=== PATIENT | female | born 1980 | race African-American/Black ===

== ENCOUNTER 2024-12-30 23:27 | Emergency (ER) | payer OTHER, SELFPAY ==
--- NOTE | ~2024-12-30 | XR_ITS ---
CHEST RADIOGRAPH, PA AND LATERAL CLINICAL HISTORY: chest pain . COMPARISON: None available TECHNIQUE: PA and lateral views of the chest. FINDINGS The cardiomediastinal silhouette is unremarkable. The lungs are clear. IMPRESSION: No focal infiltrate or effusion. Reviewed, dictated and finalized at location A.
[2024-12-30 23:36] VITALS: BP 126/82; PULSE 72; RESP 20; TEMP 36.7; O2SAT 100
[2024-12-31 00:04] LABS: Hematocrit 36.5 % (37.0-47.0); Hemoglobin 12.0 g/dL (12.0-15.0); Immature Granulocyte Percent A 0.3 % (0-0.5); Lymphocytes Absolute Auto 3.82 K/mm3 (0.9-3.2); Mean Corpuscular HGB Conc 32.9 g/dl (32-36); Mean Corpuscular Hemoglobin 30.0 pg (26-34); Mean Corpuscular Volume 91.3 fl (80-100); Nucleated Red Blood Cells Absolute Auto 0.000 K/mm3 (0.0-0.012); Nucleated Red Blood Cells Perc 0.0 % (0.0-0.2); Platelet Count Result 248 k/mm3 (150-375); Red Blood Count 4.00 M/mm3 (4.2-5.4); White Blood Count 7.7 K/mm3 (4.5-10.0)
[2024-12-31 00:08] LABS: Alanine Aminotransferase 53 U/L (6-35); Albumin Level 4.1 g/dL (3.5-5.1); Alkaline Phosphatase 117 U/L (38-126); Anion Gap 9 mmol/L (4-12); Aspartate Amino Transferase 40 U/L (14-36); Bilirubin,Total 0.4 mg/dL (0.2-1.3); Blood Urea Nitrogen 16 mg/dL (7-17); Calcium 9.3 mg/dL (8.4-10.2); Carbon Dioxide 21 mmol/L (22-30); Chloride 105 mmol/L (98-107); Estimated CRCL calculation 81 ml/min; Estimated Glomerular Filt Rate > 60; Glucose 250 mg/dL (65-110); INR 1.1; Lipase 205 U/L (23-300); Partial Thromboplastin Time 21.8 Seconds (22.3-36.8); Potassium 3.8 mmol/L (3.4-5.0); Prothrombin Time 13.8 Seconds (11.1-14.7); Sodium 135 mmol/L (137-145); Total Protein 7.5 g/dL (6.3-8.2)
[2024-12-31 00:18] LABS: Anisocytosis 1+; Band Neutrophils Percent 0 % (0-6); Hypochromasia 1+; Schistocytes None Seen; Troponin I < 0.012 ng/mL (0.000-0.034)
--- NOTE | 2024-12-31 02:49 | ECG_ITS ---
Test Date: 2024-12-31 02:55:45 Measurements Intervals [place] Rate: 73 P: 46 TX: 139 QRS: -14 QRSD: 98 T: -5 QT: 391 QTc: 433 Interpretive Statements SINUS RHYTHM INCOMPLETE RIGHT BUNDLE BRANCH BLOCK DELAYED PRECORDIAL R/S TRANSITION BORDERLINE ST-T WAVE ABNORMALITY- INFERIOR LEADS BORDERLINE ECG No previous ECG available for comparison Electronically Signed On 12-31-2024 06:18:24 CDT by Luis Alberto Cerna D.O.
[2024-12-31 03:35] LABS: Troponin I < 0.012 ng/mL (0.000-0.034)
[2024-12-31 03:57] VITALS: PULSE 69; O2SAT 100
[2024-12-31 03:59] VITALS: BP 125/82; PULSE 68; RESP 16; O2SAT 100
--- NOTE | 2024-12-31 05:30 | ED_ITS ---
HPI - Chest Pain General Chief Complaint: Chest Pain Stated Complaint: chest pain Time Seen by Provider: 12/31/24 05:08 Source: patient and other Mode of arrival: ambulatory Limitations: no limitations History of Present Illness HPI narrative: 44yo presents with chest pain described as a pressure in central chest and radiating towards right side of chest. Has chronic nausea, no vomiting. Has been told has a hiatal hernia and recently underwent what sounds to be a gastric emptying study (ate eggs that contained a substance and had images obtained) at [facility]. Has not had follow up appointment for results. Not currently on any GI meds. Pain is intermittent. Some shortness of breath. Finds she has to sit upright. Has had a dry cough. No fevers or chills. Not on anticoagulation. Not on OCP/HRT/other hormones. No prior PE/DVT. No hemoptysis. No edema. No recent surgery/trauma/required anesthesia. States no underlying cardiac issues; has never seen a ict sales representative. History of asthma but well controlled, has albuterol inhaler PRN but rarely has to use. Cardiac risk factors HTN: Yes, on losartan HLD: Yes , on statin DM: Yes, on Vikt[place] Obese: Yes Smoker: Yes, 1/2 PPD Personal history NE/TIA/CVA: Yes, tia Fam Hx NE in first degree relative <65yo: Yes, both sis and brother Related Data Allergies Allergy/AdvReac Type Severity Reaction Status Date / Time Opioids - Morphine Analogues Allergy Mild burning Verified 12/30/24 23:40 eyes PMFSH Past Medical History Medical History (Updated 01/01/25 @ 12:51 by Azalia Tavarez MD) Brain TIA Hiatal hernia Diabetes mellitus HLD (hyperlipidemia) HTN (hypertension) Family History Family History (Updated 01/01/25 @ 12:52 by Azalia Tavarez MD) Sibling Acute myocardial infarction <65yo Sibling Acute myocardial infarction <65yo Social History Social History (Updated 01/01/25 @ 12:51 by Azalia Tavarez MD) Smoking packs per day: 0.5 Smoking cigarettes per day: 10.0 Smoking status: Current every day smoker Exam 2 Narrative: GENERAL: Well-appearing, well-nourished, and in no acute distress. Initially laying down but has to sit upright HEAD: Normocephalic, atraumatic. EYES: Non injected, non icteric ENT: Nares clear, no rhinorrhea or epistaxis. Gross auditory acuity intact. NECK: Supple. No meningismus. CHEST: Speaking in full sentences. No respiratory distress. Non labored. Lungs CTAB without wheezes, crackles, areas of consolidation. HEART: Regular rate and rhythm. . ABDOMEN: Soft, nondistended. No rigidity or guarding. Not peritoneal EXTREMITIES: Normal range of motion. No bilateral lower extremity edema. SKIN: Warm, dry, no rash. NEURO: No focal deficits. Alert and oriented. Answering questions. Following commands. Normal speech without aphasia or dysarthria. PSYCH: Normal mood and affect. Course Vital Signs Vital signs: Vital Signs Temperature 98.1 F 12/30/24 23:36 Pulse Rate 72 12/30/24 23:36 Respiratory Rate 20 12/30/24 23:36 Blood Pressure 126/82 12/30/24 23:36 Pulse Oximetry 100 12/30/24 23:36 Oxygen Delivery Room Air 12/30/24 23:36 Temperature 98.1 F 12/30/24 23:36 Pulse Rate 69 12/31/24 06:14 Respiratory Rate 18 12/31/24 06:14 Blood Pressure 124/77 12/31/24 06:14 Pulse Oximetry 99 12/31/24 06:14 Oxygen Delivery Room Air 12/31/24 03:57 MDM - Chest Pain MDM Narrative Medical decision making narrative: Patient presents with chest pain/pressure. In the emergency department they are afebrile with vital signs within normal limits. HEART SCORE History 2 highly suspicious 1 moderately suspicious 0 slightly suspicious History score [address] depression/elevation not due to LBBB, LVH, or digoxin [address] depression but LBBB, LVH, nonspecific repolarization changes 0 normal ECG score 0 Age 2 >/= 65 1 45-64 0 <45 Age score 0 Risk factors (HTN, hypercholesterolemia, DM, obesity with BMI >30, current smoker or cessation </=3mo), positive fam hx with parent or sibling with CVD before age 65, atherosclerotic disease (prior NE, PCI/CABG, CVA/TIA, or peripheral arterial disease) 2 >/= 3 risk factors or history of atherosclerotic dz 1 - 1-2 risk factors 0 no known risk factors Risk factor score 2 Initial Troponin 2 >3 times normal limit 1 1-3 times normal limit 0 less than or equal to normal limit Troponin score 0 Total HEART Score 2 Repeat troponin negative. PERC Rule Age greater than or equal to 50:0 HR greater than or equal to 100:0 O2 sat room air <95%:0 Unilateral leg swellin Hemoptysis:0 Recent surgery or trauma less than 4 wks ago requiring tx with general anesthesia:0 Prior PE or DVT:0 Hormone use (OCP, HRT or estrogenic hormone use in M/F patients): 0 Hyperglycemia without anion gap acidosis. Mild transaminitis but s/p david. Normal lipase. Her symptoms do sound consistent with GI etiology and she is currently being worked up for this. She even notes that she has to sit upright during our interaction and I suspect that her cough is likely due to a hiatal hernia which is complicated by GERD and causing a cough. Treated as such but nevertheless we discussed that she has a low HEART score of 2 but, given that this is comprised of SEVERAL risk factors (HTN, HLD, DM, obesity, smoker, hx and family history!), the importance of pursuing cardiac work up in the outpatient setting. Advised to keep her upcoming GI follow up and provided Rx in the interim. Also provided contact referral info for both pcp and cardiology. Otherwise stable for DC. Differential Diagnosis Differential diagnosis: Likely pneumothorax, stable angina, unstable angina pectoris, atypical chest pain, st elevation myocardial infarction, costochondritis, chest pain, biliary colic and other (GERD/hiatal hernia, esophageal spasm; bronchitis) Lab Data Attestation: I reviewed the patient's lab results. Lab results narrative: CBC with mild abnormalities on the differential but no marked leukocytosis anemia thrombocytopenia 12/30/24 23:49 12/30/24 23:49 Labs: Lab Results 12/30/24 12/31/24 Range/Units 23:49 03:09 WBC 7.7 (4.5-10.0) K/mm3 RBC 4.00 L (4.2-5.4) M/mm3 Hgb 12.0 (12.0-15.0) g/dL Hct 36.5 L (37.0-47.0) % MCV 91.3 (80-100) fl MCH 30.0 (26-34) pg MCHC 32.9 (32-36) g/dl RDW 13.2 (11.5-14.5) % Plt Count 248 (150-375) k/mm3 MPV 9.9 (7.4-10.4) fl Immature Gran % (Auto) 0.3 (0-0.5) % Neut % (Auto) 40.2 L (45.5-73.1) % Lymph % (Auto) 49.4 H (18.3-44.2) % [place] % (Auto) 6.3 (2.6-8.5) % Eos % (Auto) 3.2 (0-4.4) % Baso % (Auto) 0.6 (0.2-1.2) % Lymph # (Auto) 3.82 H (0.9-3.2) K/mm3 [place] # (Auto) 0.5 (0.1-0.6) K/mm3 Eos # (Auto) 0.3 (0-0.3) K/mm3 Baso # (Auto) 0.1 (0.0-0.1) K/mm3 Abs Immat Gran (auto) 0.02 (0.00-0.031) K/mm3 Absolute Neuts (auto) 3.1 (1.3-6.7) K/mm3 Absolute Nucleated RBC 0.000 (0.0-0.012) K/mm3 Band Neutrophils % 0 (0-6) % Nucleated RBC % 0.0 (0.0-0.2) % Platelet Estimate Adequate (Adequate) Hypochromasia 1+ Anisocytosis 1+ Schistocytes None seen PT 13.8 (11.1-14.7) Seconds INR 1.1 APTT 21.8 L (22.3-36.8) Seconds Sodium 135 L (137-145) mmol/L Potassium 3.8 (3.4-5.0) mmol/L Chloride 105 (98-107) mmol/L Carbon Dioxide 21 L (22-30) mmol/L Anion Gap 9 (4-12) mmol/L BUN 16 (7-17) mg/dL Creatinine 0.81 (0.7-1.0) mg/dL Estim Creat Clear Calc 81 ml/min Estimated GFR > 60 (59 - ) Glucose 250 H (65-110) mg/dL Calcium 9.3 (8.4-10.2) mg/dL Total Bilirubin 0.4 (0.2-1.3) mg/dL AST 40 H (14-36) U/L ALT 53 H (6-35) U/L Alkaline Phosphatase 117 (38-126) U/L Troponin I < 0.012 < 0.012 (0.000-0.034) ng/mL Total Protein 7.5 (6.3-8.2) g/dL Albumin 4.1 (3.5-5.1) g/dL Lipase 205 (23-300) U/L Imaging Data Radiologist's impression: IMPRESSION: No focal infiltrate or effusion. ECG Data EKG #1: Attestation: I personally reviewed and interpreted this ECG as follows: ECG completion date: 12/31/24 ECG completion time: 02:55 Interpretation: Normal sinus rhythm at a rate of 73 beats per minute. ND interval 139. QRS 98. QT/QTC 391/433. T-wave inversion in 3, isolated. Possible T-wave flattening in V3 although the subsequent complexes do not appear this distinct. No other T-wave inversions. Discharge Plan Discharge Clinical Impression: Chest pain, Hyperglycemia due to diabetes mellitus, Hiatal hernia Patient Disposition: Home Condition: Stable Instructions: Antibiotic Form, Chest Pain (DC), Hiatal Hernia (DC), GERD (Gastroesophageal Reflux Disease) (ED), Diabetic Hyperglycemia (ED) Additional Instructions: You had a reassuring workup for your chest pain in terms of your EKG, 2 negative troponins (cardiac enzyme), chest x-ray, etc.. Your symptoms sound consistent with a GI process and especially make sense given you are currently being worked up for hiatal hernia and this can cause GERD. You can trial the prescribed medication. Keep your upcoming follow-up appointments to get the results of the recent study you underwent. Follow-up with your primary care physician. If you do not have 1 the name of the doctors listed below. However, as we discussed, you are low but not NO risk as you have several risk factors. For this reason, it is recommended that you follow-up for a cardiac workup. The name of a ict sales representative is listed below. Patient Language: Sammarinese Prescriptions: New omeprazole 20 mg tablet,delayed release (DR/EC) 20 mg PO DAILY Qty: 14 0RF Follow-up/Referrals: Freddie Rollins MD [Physician] - (Cardiology) Chon Hammond MD [Physician] - (Family practice/primary care) UNKNOWN,DOCTOR [Primary Care Provider] - Stand Alone Forms: Work/School Release IP Time of Disposition: 05:52
--- OUTSIDE RECORDS SUMMARY | 2024-12-31 05:53 | XMS_ITS | Encounter Summary ---
Author Organization [facility] Healthcare Address [address] [place] [address] Care Team Providers Care Supervisor [employer] Name Role Phone Leonie rGeer MD Primary Care Provide r Jennifer Alan CHIEF DRAFTER Unavailable [phone] Encounter Details Date Type Department Care Team (Late st Contact Info) Description 02/11/2023 Telephone [facility] [address] [place] [address], [address] [place] [address] Gianna Sparks RN Social History Tobacco Use Types Packs/Day Years Used Date Smoking Tobacco: Every Day Cigarettes 0.5 27.6 Started: 1997 Passive Smoke Exposure: Current Smokeless Tobacco: Never Alcohol Use Standard Drinks/Week Comments Yes 0 (1 standard drink = 0.6 oz pur e alcohol) social AUDIT-C Answer Date Recorded Q1: How often do you have a drink containing alc ohol? Never 01/17/2023 Average Number of Drinks Not on file 023 Frequency of Binge Drinking Not on file 12/25 Comments No Sex and Gender Information Value Date Recorded Sex Assigned at Not on file Legal Sex Female 11:11 PM CLAY WORKER Gender Identity Female 06/22/2021 12:27 PM CLAY WORKER Sexual Orientation Not on file documented as of this encounter Plan of Treatment Not on file documented as of this encounter Visit Diagnoses Not on filedocumented in this encounter Additional Health Concerns Infection Onset Date Last Indicated Resolved Time COVID: Suspected 06/09/2024 06/09/2024 06/09/2024 9:03 PM CLAY WORKER documented as of this encounter Care Teams Supervisor [employer] Relationship Specialty Start Date End Date Leonie Greer MD [address] [place] [id number] PCP - General 02/03/20 Jennifer Alan NP [address] [facility] [address] [address] Nurse Practitioner Orthopedic Surgery 07/02/23 documented as of this encounter
--- OUTSIDE RECORDS SUMMARY | 2024-12-31 05:53 | XMS_ITS | Encounter Summary ---
Author Organization [facility] Healthcare Address [address] [place] [address] Care Team Providers Care Boot Liner Maker Name Role Phone Leonie Greer MD Primary Care Provide r Jennifer Alan RESTAURANT HOURLY MANAGER Unavailable [phone] Encounter Details Date Type Department Care Team (Late st Contact Info) Description 02/11/2023 Documentation [facility] [address] [place] [address], [address] [place] [address] Gianna Sparks RN Social History [...] on file Legal Sex Female 11:11 PM AIRPLANE FIRST OFFICER Gender Identity Female 06/22/2021 12:27 PM AIRPLANE FIRST OFFICER Sexual Orientation Not on file documented as of this encounter Plan of Treatment Not on file documented as of this encounter Visit Diagnoses Not on filedocumented in this encounter Additional Health Concerns Infection Onset Date Last Indicated Resolved Time COVID: Suspected 06/09/2024 06/09/2024 06/09/2024 9:03 PM AIRPLANE FIRST OFFICER documented as of this encounter Care Teams Boot Liner Maker Relationship Specialty Start Date End Date Leonie Greer MD [address] [place] [id number] PCP - General 02/03/20 Jennifer Alan NP [address] [facility] [address] [address] Nurse Practitioner Orthopedic Surgery 07/02/23 documented as of this encounter
--- OUTSIDE RECORDS SUMMARY | 2024-12-31 05:53 | XMS_ITS | Clinical Summary ---
Author Organization [facility] A Address [address] [place] [address] Care Team Providers Care Fire Loss Prevention Engineer Name Role Phone Leonie Greer MD Primary Care Provide r Jennifer Alan INHALATION THERAPIST Unavailable [phone] Allergies Active Allergy Reactions Criticality Noted Date Comments Morphine Other (See comments),Anaphylaxis High 12/09/2017 Other reaction(s): face and throat burning face and throat burning Mushroom Hives Medium 01/17/2023 Medications atorvastatin (LIPITOR) 20 mg tablet Take 1 tablet (20 mg total) by mouth daily 2 Active losartan-hydroc hlorothiazide (HYZAAR) 100-25 mg per tablet Take 1 tablet by mouth daily 2 Active amLODIPine (NORVASC) 10 mg tablet Take 1 tablet (10 mg total) by mouth daily Active albuterol HFA (PROVENTIL HFA,VENTOLIN HFA,PROAIR HFA) 90 mcg/actuation inhaler Inhale 2 puffs every 4 (four) hours as needed for wheezing or shortness of breath Active budesonide-form oteroL (SYMBICORT) 160-4.5 mcg/actuation inhaler Inhale 2 puffs 2 (two) times a day Rinse mouth with water after use. Do not swallow. Active Farxiga 5 mg tablet Take 1 tablet (5 mg total) by mouth daily 30 tablet 5 Active metFORMIN XR (GLUCOPHAGE XR) 500 mg 24 hr tablet Take 2 tablets (1,000 mg total) by mouth daily with breakfast 60 tablet 5 Active ketorolac (TORADOL) 10 mg tablet Take 1 tablet (10 mg total) by mouth every 6 (six) hours as needed for pain 20 tablet 5 Active Active Problems Problem Noted Date Diagnosed Date Diverticulitis of colon with perforation 025 Cervical myelopathy with cervical radiculopathy 03/12/2023 Spinal stenosis of cervical region 02/18/2023 Cervical spinal stenosis 12/30/2022 Retrolisthesis of vertebrae 12/30/2022 Adnexal cyst 02/16/2019 Anemia 02/16/2019 Anemia due to chronic blood loss 02/16/2019 Chest pain 02/16/2019 Costochondritis 02/16/2019 Diabetes 02/16/2019 Dyspnea 02/16/2019 Menorrhagia 02/16/2019 Morbid obesity with BMI of 40.0-44.9, adult 01/25 Uterine fibroid 02/16/2019 Surgical History Surgery Date Site/Laterality Comments US ABDOMEN COMPLETE W LIVER DOPPLER (C) 12/09/2017 Right SECTION APPENDECTOMY CHOLECYSTECTOMY BLADDER REPAIR HAND SURGERY Left TOE SURGERY left great toenail removed HYSTERECTOMY Medical History Medical History Date Comments Diabetes mellitus (HCC) Hypertension Asthma allergy induced; not on inhalers anymore Hyperlipidemia Retrolisthesis of cervical v ertebrae, grade 1 C4 on C5 07/11/2022 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 07/11/2022 Dextrocurvature of thoracic spine 07/11/2022 Facet arthropathy, thoracic 07/11/2022 Patellofemoral chondrosis of right knee Allergic rhinitis Morbid obesity (HCC) Wears glasses at night GERD (gastroesophageal reflux disease) Rheumatoid arthritis (HCC) Missing teeth, acquired Type 2 diabetes mellitus 2019 Chronic pain disorder neck Social History Tobacco Use Types Packs/Day Years Used Date Smoking Tobacco: Former Cigarettes 0.5 25.7 1 998 - 01/2023 Passive Smoke Exposure: Current Smokeless Tobacco: Never Tobacco Cessation:Counseling Given: Not Answered Alcohol Use Standard Drinks/Week Comments Yes 0 (1 standard drink = 0.6 oz pur e alcohol) social OASIS D0700: Social Isolation Answer Da te Recorded Frequency of experiencing loneliness or isolatio n Never 04/18/2023 OASIS A1250: Transportation Answer Date Recorded Lack of Transportation (Medical) No 04/18/2023 Lack of Transportation (Non-Medical) No 04/18/2023 Patient Unable or Declines to Respond No 04/18/2023 OASIS B1300: Health Literacy Answer Tom e Recorded Frequency of needing help to read materials from doctor or pharmacy Never 04/18/2023 [facility] Utilities Answer Date Recorded In the past 12 months has th e [employer], [employer], oil, or water [employer] threatened to shut off services in your home? No 05/28/2024 Social Connection and Isolat ion Panel [NHANES] Answer Date Recorded In a typical week, how many times do you talk on the phone with family, friends, or neighbors? More than three times a week 05/28/2024 How often do you get togethe r with friends or relatives? More than three times a week 05/28/2024 How often do you attend chur ch or tenriism services? More than 4 times per year 05/28/2024 Do you belong to any clubs o r organizations such as latter-day groups, unions, fraternal or athletic groups, or school groups? No 05/28/2024 How often do you attend meet ings of the clubs or organizations you belong to? Never 05/28/2024 Are you , , di vorced, , never , or living with a partner? Never 05/28/2024 AUDIT-C Answer Date Recorded Q1: How often do you have a drink containing alcohol? Never 03/12/2023 Q2: How many drinks containi ng alcohol do you have on a typical day when you are drinking? Patient does not drink Q3: How often do you have si x or more drinks on one occasion? Never 03/12/2023 Overall Financial Resource Strain (CARDIA) Answe r Date Recorded How hard is it for you to pa y for the very basics like food, housing, medical care, and heating? Hard 05/28/2024 Hunger Vital Sign Answer Date Recorded Within the past 12 months, y ou worried that your food would run out before you got the money to buy more. Often true 05/28/19 25 Within the past 12 months, t he food you bought just didn't last and you didn't have money to get more. Often true 05/28/2024 PRAPARE - Transportation Answer Date Re corded In the past 12 months, has l ack of transportation kept you from medical appointments or from getting medications? No 07/2024 In the past 12 months, has l ack of transportation kept you from meetings, work, or from getting things needed for daily living? No 05/28/2024 Housing Stability Vital Sign Answer Tom e Recorded In the last 12 months, was t here a time when you were not able to pay the mortgage or rent on time? No 03/13/2023 In the last 12 months, how many places have you lived? 1 03/13/2023 In the last 12 months, was t here a time when you did not have a steady place to sleep or slept in a fci (including now)? No 03/13/2023 Housing Stability Vital Sign Answer Tom e Recorded In the last 12 months, was t here a time when you were not able to pay the mortgage or rent on time? Yes 05/28/2024 In the past 12 months, how m any times have you moved where you were living? 0 05/28/2024 At any time in the past 12 m [facility], were you homeless or living in a fci (including now)? No 05/28/2024 Personal Safety Answer Date Recorded Have you ever been in or are you currently in a harmful physical or emotional relationship or is someone making you feel afraid or unsafe? Denies 07/25/2024 Comments No Sex and Gender Information Value Date Recorded Sex Assigned at Not on file Legal Sex Female 11:11 PM VIDEO GAME ENGINEER Gender Identity Female 06/22/2021 12:27 PM VIDEO GAME ENGINEER Sexual Orientation Not on file Obstetrics History Last Filed Vital Signs Vital Sign Reading Time Taken Comments Blood Pressure 120/88 07/25/2024 11:15 PM VIDEO GAME ENGINEER Pulse 88 07/25/2024 11:15 PM VIDEO GAME ENGINEER Temperature 36.8 C (98.2 F) 07/25/2024 8:13 PM VIDEO GAME ENGINEER Respiratory Rate 20 07/25/2024 11:15 PM VIDEO GAME ENGINEER Oxygen Saturation 99% 07/25/2024 11:15 PM VIDEO GAME ENGINEER Inhaled Oxygen Concentration - - Weight 96.8 kg (213 lb 6.4 oz) 05/27/2024 8:07 P M VIDEO GAME ENGINEER Height 157.5 cm (5' 2) 06/09/2024 7:28 PM VIDEO GAME ENGINEER Body Mass Index 39.03 05/27/2024 8:07 PM VIDEO GAME ENGINEER Plan of Treatment Health Maintenance Due Date Last Done Comments Albumin Creatinine Ratio, Urine 1980 Breast Cancer Screening-Mammogram 1980 Depression Screening 1980 Hepatitis C Screening 1980 Dilated Eye Exam 1980 Foot Exam 1980 DTaP/Tdap/Td Vaccine (1 - Tdap) 1991 Varicella Vaccines (1 of 2 - 13+ 2-dose series) 1993 Hepatitis B Screening 1998 Regular Well Visit/Exam 18-64 1998 HPV Vaccines (1 - 3-dose SCD M series) 2007 Pneumococcal vaccine <65 (2 of 2 - PCV) 12/04/2018 12/04/2017 Lipid Panel 12/31/2023 12/30/2022, 05/26, 02/03/2020, Additional history exists Covid-19 Vaccine (3 - 2023-2 5 season) 2024 09/01/2020, 08/10/2020 Hemoglobin A1C 11/26/2024 05/29/2024, 01/2023, 12/30/2022, Additional history exists Influenza Vaccine (#1) 2025 , 03/31/2018, 08/09/2015, Additional history exists eGFR 06/09/2025 06/09/2024, 09/2024, 05/29/2024, Additional history exists Medical Devices Implanted Type Area Casualty Underwriter Device Identifier Shelf Expiration Date Model / Serial / Lot [employer] Graft Bone Strut Cortical Fd Centerpiece 12mm [id number] - [id number] - [id number] Implanted:Qty: 1 on 03/12/2023 by Kassandra Martinez Ud, MD at [facility] Bone N/A: Spine Cervical [employer] 06/21/2027 [id number] / [id number] / [id number] Description:GRAFT BONE STRUT CORTICAL FD CENTERPIECE 12MM [id number] [employer] Graft Bone Strut Cortical Fd Centerpiece 12mm [id number] - [id number] - [id number] Implanted:Qty: 1 on 03/12/2023 by Kassandra Martinez Ud, MD at [facility] N/A: Spine Cervical [employer] 06/23/2026 [id number] / [id number] / [id number] Description:GRAFT BONE STRUT CORTICAL FD CENTERPIECE 12MM [id number] [employer] Graft Bone Strut Cortical Fd Centerpiece 12mm [id number] - [id number] - [id number] Implanted:Qty: 1 on 03/12/2023 by Kassandra Martinez Ud, MD at [facility] N/A: Spine Cervical [employer] 03/22/2026 [id number] / [id number] / [id number] Description:GRAFT BONE STRUT CORTICAL FD CENTERPIECE 12MM [id number] [employer] Graft Bone Strut Cortical Fd Centerpiece 12mm [id number] - [id number] - [id number] Implanted:Qty: 1 on 03/12/2023 by Kassandra Martinez Ud, MD at [facility] N/A: Spine Cervical [employer] 06/23/2026 [id number] / [id number] / [id number] Description:GRAFT BONE STRUT CORTICAL FD CENTERPIECE 12MM [id number] [employer] Centerpiece 12mm Graft Precut Color Coded Spine Precontour Plate [id number] - [id number] Implanted:Qty: 4 on 03/12/2023 by Kassandra Martinez Ud, MD at [facility] Plate N/A: Spine Cervical [employer] [id number] / / [employer] Centerpiece Hinge Trough Spine Angle Small Plate Bone Titanium [id number] - [id number] Implanted:Qty: 2 on 03/12/2023 by Kassandra Martinez Ud, MD at [facility] Plate N/A: Spine Cervical [employer] [id number] / / [employer] Screw Rescue Odlp 2.4x7mm [id number] - [id number] Implanted:Qty: 3 on 03/12/2023 by Kassandra Martinez Ud, MD at [facility] Screw N/A: Spine Cervical [employer] [id number] / / [employer] Spinal Screw Anterior Cervical Odlp Solid 2.0x5mm [id number] - [id number] Implanted:Qty: 9 on 03/12/2023 by Kassandra Martinez Ud, MD at [facility] Screw N/A: Spine Cervical [employer] [id number] / / [employer] Spinal Screw Anterior Cervical Odlp Solid 2.0x7mm [id number] - [id number] Implanted:Qty: 14 on 03/12/2023 by Kassandra Martinez Ud, MD at [facility] Screw N/A: Spine Cervical [employer] [id number] / / [employer] Screw Rescue Odlp 2.4x5mm [id number] - [id number] Implanted:Qty: 4 on 03/12/2023 by Kassandra Martinez Ud, MD at [facility] Screw N/A: Spine Cervical [employer] [id number] / / Procedures Procedure Name Priority Date/Time Associated Diagnosis Comments EGFR STAT 06/09/2024 8:15 PM VIDEO GAME ENGINEER HEMOGLOBIN A1C Routine 05/29/2024 3:28 AM VIDEO GAME ENGINEER LIPID PANEL Routine 12/30/2022 9:12 AM CDT Precordial pain Essential hypertension Diabetes mellitus type II, non insulin dependent (HCC) Pure hypercholesterolemia Tobacco abuse from Last 3 Months or Most Recently Relevant to Health Maintenance Results * eGFR (06/09/2024 8:15 PM VIDEO GAME ENGINEER) eGFR >90 >=60 mL/min/1. 73 m2 Comment: Interpretive Data Reference Interval Normal >/= 90 mL/min/1.73m2 Mildly decreased* 60 - 89 mL/min/1.73m2 Mildly to moderately decreased 45 - 59 mL/min/1.73m2 Moderately to severely decreased 30 - 44 mL/min/1.73m2 Severely decreased 15 - 29 mL/min/1.73m2 Kidney Failure < 15 mL/min/1.73m2 *Relative to young adult level Estimated glomerular filtration rate is determined by the 2020 CKD-EPI equation recommended by the National Kidney Foundation (A Unifying Approach to GFR Estimation: Recommendations of the NKF-ASK Task Force on Reassessing the Inclusion of Race in Diagnosing Kidney Disease, JASN 202). The CKD-EPI equation should not be used for patients with unstable renal function and has not been validated in children and those over 70. Current interpretive data was last reviewed 2021. Blood 06/09/2024 8:15 PM VIDEO GAME ENGINEER 06/09/2024 8:18 PM VIDEO GAME ENGINEER Pierce Khan MD LAB BLOOD ORDERABLE S Final Result Performing Organization Address [facility] de Phone Number [address] [place] [address] * (ABNORMAL) Hemoglobin A1c (05/29/2024 3:28 AM VIDEO GAME ENGINEER) Hgb A1C 11.5(H) 4.0 - 5.6 % Estimated Average Glucose 283 mg/dL DAVID Comment: The ADA recommends reporting an estimated Average Glucose (eAG) with all Hemoglobin A1c results using the equation derived from a study of 507 normal and diabetic adults. Minority populations were underrepresented and children were not included. (Diabetes Care 31:8846-4597, 2008). The eAG is not equivalent to a fasting glucose. Blood 05/29/2024 3:28 AM VIDEO GAME ENGINEER 05/29/2024 3:54 AM VIDEO GAME ENGINEER Mynor Bray DO LAB BLOOD ORDERABLES Final Resul t Performing Organization Address [facility] de Phone Number [place] [id number] [facility] [place] [address] * (ABNORMAL) Lipid panel (12/30/2022 9:12 AM CDT) Cholesterol 242(H) 30 - 199 mg/dL ADVID Comment: Interpretive Data Ages < or = 19 years Acceptable: <170 mg/dL Borderline high: 170-199 mg/dL High: >or= 200 mg/dL Ages > or = 20 years Desirable: <200 mg/dL Borderline high: 200-239 mg/dL High: >or= 240 mg/dL Literature References: 1. Expert Panel on Integrated Guidelines for Cardiovascular Health and Risk Reduction in Children and Adolescents. Pediatrics 2011;128:S213 2. NCEP Expert Panel. Circulation 2004;110:227 Current Interpretive Data was last revised on 2018. Triglycerides 182(H) <=149 mg/dL DAVID Comment: Interpretive Data Ages < or = 9 years Acceptable: <75 mg/dL Borderline high: 75-99 mg/dL High: >or= 100 mg/dL Ages 10 to 20 years Acceptable: <90 mg/dL Borderline high: 90-129 mg/dL High: >or= 130 mg/dL Ages > or = 20 years Desirable: <150 mg/dL Borderline high: 150-199 mg/dL High: 200-499 mg/dL Very high: >or= 499 mg/dL Literature References: 1. Expert Panel on Integrated Guidelines for Cardiovascular Health and Risk Reduction in Children and Adolescents. Pediatrics 2011;128:S213 2. NCEP Expert Panel. Circulation 2004;110:227 Current Interpretive Data was last revised on 2018. HDL 35(L) >=40 mg/dL DAVID Comment: Interpretive Data Ages < or = 19 years Acceptable: >45 mg/dL Borderline low: 40-45 mg/dL Low: <40 mg/dL Ages > or = 20 years Desirable: >or= 60 mg/dL Low: <40 mg/dL Literature References: 1. Expert Panel on Integrated Guidelines for Cardiovascular Health and Risk Reduction in Children and Adolescents. Pediatrics 2011;128:S213 2. NCEP Expert Panel. Circulation 2004;110:227 Current Interpretive Data was last revised on 2018. LDL, calculated 171(H) <=129 mg/dL [facility] Comment: Interpretive Data Ages < or = 19 years Acceptable: <110 mg/dL Borderline high: 110-129 mg/dL High: >or= 130 mg/dL Ages > or = 20 years Optimal: <100 mg/dL Near optimal: 100-129 mg/dL Borderline high: 130-159 mg/dL High: >160 mg/dL Literature References: 1. Expert Panel on Integrated Guidelines for Cardiovascular Health and Risk Reduction in Children and Adolescents. Pediatrics 2011;128:S213 2. NCEP Expert Panel. Circulation 2004;110:227 Current Interpretive Data was last revised on 2018. Non-HDL Cholesterol 207 mg/dL DAVID WILLS Comment: Interpretive Data Ages < or = 19 years Acceptable: <120 mg/dL Borderline high: 120-144 mg/dL High: >145 mg/dL Ages > or = 20 years When triglycerides are >200 mg/dL, Non-HDL cholesterol is a secondary target of therapy with treatment goals that are 30 mg/dL greater than the LDL cholesterol target. Literature References: 1. Expert Panel on Integrated Guidelines for Cardiovascular Health and Risk Reduction in Children and Adolescents. Pediatrics 2011;128:S213 2. NCEP Expert Panel. Circulation 2004;110:227 Current Interpretive Data was last revised on 2018. Chol/HDL ratio 7 DAVID WILLS Blood 12/30/2022 9:12 AM CDT 12/30/2022 12:23 PM CDT Rj Bry Lopez MD LAB BLOOD ORDERABLES [facility] Result DAVID [address] [facility] [place] [address] from Last 3 Months or Most Recently Relevant to Health Maintenance [place] [address] [facility] Advance Directives For more information, please contact: [phone] * Full Code (Latest Code Status on File) Date Activated Date Inactivated Comments 05/27/2024 8:20 PM 05/31/2024 7:56 PM * Full Code Date Activated Date Inactivated Comments 03/12/2023 1:53 PM 03/15/2023 4:38 PM Care Teams Fire Loss Prevention Engineer Relationship Specialty Start Date End Date Leonie Greer MD [address] [place] [id number] PCP - General 02/03/20 Jennifer Alan NP [address] [place] [address] Nurse Practitioner Orthopedic Surgery 07/02/23
--- OUTSIDE RECORDS SUMMARY | 2024-12-31 05:53 | XMS_ITS | Encounter Summary ---
Author Organization [facility] Address [address] [place] [address] Phone Care Team Providers Care Network Development Coordinator Name Role Phone Leonie Greer MD Primary Care Provide r Jennifer Alan TRAVELING OPERATOR Unavailable [phone] Encounter Details Date Type Department Care Team (Late st Contact Info) Description 01/06/2023 Telephone [facility] Scheduling [address] [place] [address] Karen Shaver Social History Tobacco Use Types Packs/Day Years Used Date Smoking Tobacco: Every Day Alcohol Use Standard Drinks/Week Comments Yes 0 (1 standard drink = 0.6 oz pur e alcohol) social Comments No Sex and Gender Information Value Date Recorded Sex Assigned at Not on file Legal Sex Female 11:11 PM PROTECTIVE SIGNAL REPAIRER Gender Identity Female 06/22/2021 12:27 PM PROTECTIVE SIGNAL REPAIRER Sexual Orientation Not on file documented as of this encounter Plan of Treatment Not on file documented as of this encounter Visit Diagnoses Not on filedocumented in this encounter Additional Health Concerns Infection Onset Date Last Indicated Resolved Time COVID: Suspected 06/09/2024 06/09/2024 06/09/2024 9:03 PM PROTECTIVE SIGNAL REPAIRER documented as of this encounter Care Teams Network Development Coordinator Relationship Specialty Start Date End Date Leonie Greer MD [address] [place] [address] PCP - General 02/03/20 Jennifer Alan NP [address] [place] [address] [place] [address] Nurse Practitioner Orthopedic Surgery 07/02/23 documented as of this encounter
--- OUTSIDE RECORDS SUMMARY | 2024-12-31 05:53 | XMS_ITS | Encounter Summary ---
Author Organization [facility] Address [facility] [place] [address] Care Team Providers Care Aircraft Structural Fitter Name Role Phone Leonie Greer MD Primary Care Provider [phone] Reason for Referral * Imaging (Routine) - Closed Specialty Diagnoses / Procedures Referred By Nirmal t Referred To Contact RADIOLOGY Diagnoses GERD (gastroesophageal reflux disease) Nausea & vomiting Procedures NM GASTRIC EMPTYING STUDY Elida Méndez MD [address] [place] [address], [place] [address] Phone: tel: fax: Referral ID Status Reason Start Date Expiration Date Visits Re quested Visits Authorized [id number] Closed 12/06/2024 12/06/2025 1 1 Reason for Visit * Imaging (Routine) - Closed Specialty Diagnoses / Procedures Referred By Contac t Referred To Contact RADIOLOGY Diagnoses GERD (gastroesophageal reflux disease) Nausea & vomiting Procedures NM GASTRIC EMPTYING STUDY Elida Méndez MD [address] [place] [address], [address] [address] Phone: tel: fax: Referral ID Status Reason Start Date Expiration Date Visits Re quested Visits Authorized [id number] Closed 12/06/2024 12/06/2025 1 1 Encounter Details Date Type Department Care Team (Latest Contact Info) Description 12/29/2024 6:41 AM CDT - 12/29/2024 11:59 PM CDT Hospital Encounter [facility] Nuclear [place] [address] Elida Méndez MD [address] [facility], [address] [place] [address] Arrived Discharge Disposition: Home or Self Care (Routine Discharge) Social History Tobacco Use Types Packs/Day Years Used Date Smoking Tobacco: Every Day Cigarettes Smokeless Tobacco: Never Alcohol Use Standard Drinks/Week Comments Never 0 (1 standard drink = 0.6 oz pur e alcohol) Comments No Sex and Gender Information Value Date Recorded Sex Assigned at Female 11/23/2024 7:20 AM CDT Legal Sex Female 5:04 PM CDT Gender Identity Not on file Sexual Orientation Not on file documented as of this encounter Medications at Time of Discharge atorvastatin (LIPITOR) 10 MG tablet Take 1 tablet (10 mg total) by mouth nightly at bedtime. budesonide-formote rol (SYMBICORT) 80-4.5 MCG/ACT inhaler Inhale 2 puffs into the lungs 2 (two) times daily. Dapagliflozin Propanediol (FARXIGA) 5 MG Tab Take 5 mg by mouth daily. 05/31/2024 liraglutide (VICTOZA) 18 MG/3ML injection Inject 0.6 mg into the skin daily. losartan (COZAAR) 25 MG tablet Take 1 tablet (25 mg total) by mouth daily. metFORMIN (GLUCOPHAGE) 1000 MG tablet Take 1 tablet (1,000 mg total) by mouth 2 (two) times daily with meals. 1000mg in am 500mg in pm montelukast (SINGULAIR) 10 MG tablet Take 1 tablet (10 mg total) by mouth nightly at bedtime. documented as of this encounter Plan of Treatment Upcoming Encounters Date Type Department Care Team (Latest Contact Info) Description 02/01/2025 7:30 AM CDT Appointment [facility] [place] [address] Freddie Elizondo DO [address] [facility] [address] [place] [id number] 02/01/2025 10:30 AM CDT Hospital Encounter [facility] [address] Freddie Elizondo, DO [address] [place] [address] [place] [address] [id number] 02/01/2025 10:30 AM CDT - 02/01/2025 11:00 AM CDT [facility] [place] [address] Freddie Elizondo, DO [address] [place] [address] [place] [address] [id number] EGD WITH GONZALEZ PH MONITORING, POSSIBLE DILATION, POSSIBLE BIOPSY Mano @ 0730 Scheduled Procedures Name Priority Associated Diagnoses Date/Ti me EGD WITH GONZALEZ PH MONITORING Gerd, possible gastric ulcer 02/01/2025 10:30 AM CDT documented as of this encounter Goals Goal Patient Goal Type Associated Problems Recent Progress Patient-Stated? Author Autogenera christine Goal Care Plan Autogenerated Problem No Mariely Mckinney [facility] documented as of this encounter Procedures Procedure Name Priority Date/Time Associated Diagnosis Comments NM GASTRIC EMPTYING STUDY Routine 12/29/2024 10:24 AM CDT GERD (gastroesophageal reflux disease) Nausea & vomiting documented in this encounter Results * NM GASTRIC EMPTYING STUDY (12/29/2024 10:24 AM CDT) Anatomical Region Laterality Modality Abdomen Nuclear Medicine 12/29/2024 12:5 0 PM CDT Impressions 12/29/2024 12:53 PM CDT IMPRESSION: Normal gastric emptying study. Referred By: ELIDA MÉNDEZ Interpreted By: Dagoberto Bateman MD, 12/29/2024 12:50 PM Narrative 12/29/2024 12:[address] PM CDT [address] [address] Gastric Emptying Scintigraphy Exam date: 12/29/2024. Indications: 44-year-old female with nausea and vomiting following eating. Symptoms began approximately 4 months ago. Evaluate rate of gastric emptying. Radiopharmaceutical: 1.16 mCi Tc-99m sulfur colloid incorporated into 2 scrambled eggs, one slice toast, with 5 ounces water PO. Comparison: None. Technique: After oral ingestion of the radiolabeled meal, immediate, 1, 2, and 3-hour delayed anterior and posterior abdominal images were obtained. Findings: There is normal emptying of gastric contents into the intestine. Percent Emptying: * Time: 61 minutes, percent emptyin%; (1hr norm =>10%, =<70%). * Time: 121 minutes, percent emptyin%; (2hr =>40%). * Time: 181 minutes, percent emptyin%; (3hr =>70%). Procedure Note Dagoberto Bateman MD - 12/29/2024 [facility] [address] [place], [place] [address] Gastric Emptying Scintigraphy Exam date: 12/29/2024. Indications: 44-year-old female with nausea and vomiting following eating. Symptomsbegan approximately 4 months ago. Evaluate rate of gastric emptying. Radiopharmaceutical: 1.16 mCi Tc-99m sulfur colloid incorporated into 2 scrambled eggs, oneslice toast, with 5 ounces water PO. Comparison: None. Technique: After oral ingestion of the radiolabeled meal, immediate, 1, 2, and 3- hourdelayed anterior and posterior abdominal images were obtained. Findings: There is normal emptying of gastric contents into the intestine. Percent Emptying: * Time: 61 minutes, percent emptyin%; (1hr norm =>10%, =<70%). * Time: 121 minutes, percent emptyin%; (2hr =>40%). * Time: 181 minutes, percent emptyin%; (3hr =>70%). IMPRESSION: Normal gastric emptying study. Referred By: ELIDA MÉNDEZ Interpreted By: Dagoberto Bateman MD, 12/29/2024 12:50 PM us Elida Méndez MD NUC MED Final Resul t documented in this encounter Visit Diagnoses Diagnosis GERD (gastroesophageal reflux disease) Esophageal reflux Nausea & vomiting Nausea with vomiting documented in this encounter Administered Medications Inactive Administered Medications - up to 3 most recent administrations Medication Order MAR Action Action Date Dose Rate Site technetium Tc 99M sulfur colloid radio-isotope oral solution 1.2 millicurie 1.2 millicurie (rounded from 1.16 millicurie), Oral, Once, 1 dose, On Fri12/29/24 at 1045, RADIOPHARMACEUTICAL: Use appropriate precautions for handling & disposal. Follow appropriate safety measures to minimize radiation exposure during administration; use waterproof gloves & effective shielding, including syringe jin. Given 12/29/2024 10:24 AM CDT 1.2 millicuries documented in this encounter Additional Health Concerns Active Problems Noted Date Diagnosed Date Autogenerated Problem 12/21/2024 documented as of this encounter Care Teams Aircraft Structural Fitter Relationship Specialty Start Date End Date Leonie Greer MD [address] [place] [phone] PCP - General FAMILY PRACTICE 11/23/24 documented as of this encounter
--- OUTSIDE RECORDS SUMMARY | 2024-12-31 05:53 | XMS_ITS | Clinical Summary ---
Author Organization [facility] Address [address] [place] [address] Care Team Providers Care Character Actress Name Role Phone Leonie Greer MD Primary Care Provider [phone] Allergies Active Allergy Reactions Criticality Noted Date Comments Morphine Throat swelling High 11/08/2024 Mushrooms Throat swelling Medium 11/23/2024 Throat swelling and hives Medications liraglutide (VICTOZA) 18 MG/3ML injection Inject 0.6 mg into the skin daily. Active metFORMIN (GLUCOPHAGE) 1000 MG tablet Take 1 tablet (1,000 mg total) by mouth 2 (two) times daily with meals. 1000mg in am 500mg in pm Active losartan (COZAAR) 25 MG tablet Take 1 tablet (25 mg total) by mouth daily. Active atorvastatin (LIPITOR) 10 MG tablet Take 1 tablet (10 mg total) by mouth nightly at bedtime. Active montelukast (SINGULAIR) 10 MG tablet Take 1 tablet (10 mg total) by mouth nightly at bedtime. Active budesonide-formo terol (SYMBICORT) 80-4.5 MCG/ACT inhaler Inhale 2 puffs into the lungs 2 (two) times daily. Active Dapagliflozin Propanediol (FARXIGA) 5 MG Tab Take 5 mg by mouth daily. 05/31/2024 Active Active Problems No known active problems Encounters Date Type Department Care Team Description 12/29/2024 6:41 AM CDT - 12/29/2024 11:59 PM CDT Hospital Encounter [facility] [place] [address] Elida Méndez MD Arrived Discharge Disposition: Home or Self Care (Routine Discharge) 12/29/2024 Travel 12/15/2024 7:36 AM CDT - 12/15/2024 11:59 PM CDT Hospital Encounter [facility] [place] [address] Elida Méndez MD Discharge Disposition: Home or Self Care (Routine Discharge) 12/15/2024 Travel 11/23/2024 8:30 AM CDT - 11/23/2024 9:30 AM CDT Surgery [facility] [place] [address] Elida Méndez MD COLONOSCOPY 11/23/2024 8:11 AM CDT Anesthesia Event [facility] [place] [address] Nba Kelly MD 11/23/2024 7:21 AM CDT - 11/23/2024 9:58 AM CDT Hospital Encounter [facility] [place] [address] Elida Méndez MD Discharge Disposition: Home or Self Care (Routine Discharge) 11/23/2024 Travel 11/12/2024 Travel from Last 3 Months Social History Tobacco Use Types Packs/Day Years Used Date Smoking Tobacco: Every Day Cigarettes Smokeless Tobacco: Never Tobacco Cessation:Ready to Q uit: Not Asked; Counseling Given: Not Answered Alcohol Use Standard Drinks/Week Comments Never 0 (1 standard drink = 0.6 oz pur e alcohol) Comments No Sex and Gender Information Value Date Recorded Sex Assigned at Female 11/23/2024 7:20 AM CDT Legal Sex Female 5:04 PM CDT Gender Identity Not on file Sexual Orientation Not on file Last Filed Vital Signs Vital Sign Reading Time Taken Comments Blood Pressure 123/104 11/23/2024 9:30 AM CDT Pulse 74 11/23/2024 9:30 AM CDT Temperature 36.1 C (97 F) 11/23/2024 8:58 AM CDT Respiratory Rate 19 11/23/2024 9:30 AM CDT Oxygen Saturation 96% 11/23/2024 9:30 AM CDT Inhaled Oxygen Concentration - - Weight 92.5 kg (204 lb) 11/12/2024 11:53 AM CDT Height 157.5 cm (5' 2) 11/12/2024 11:53 AM CDT Body Mass Index 37.31 11/12/2024 11:53 AM CDT Plan of Treatment Upcoming Encounters Date Type Department Care Team (Latest Contact Info) Description 02/01/2025 7:[address] [facility] [place] [address] Freddie Elizondo, DO [address] [place] [address] [place] [address] [id number] 02/01/2025 10:30 AM CDT Hospital Encounter [facility] [place] [address] Freddie Elizondo, DO [address] [place] [address] [place] [address] [id number] 02/01/2025 10:30 AM CDT - 02/01/2025 11:[address] [facility] [place] [address] Freddie Elizondo, DO [address] [place] [address] [place] [address] [id number] EGD WITH GONZALEZ PH MONITORING, POSSIBLE DILATION, POSSIBLE BIOPSY Mano @ 0730 Scheduled Procedures Name Priority Associated Diagnoses Date/Ti me EGD WITH GONZALEZ PH MONITORING Gerd, possible gastric ulcer 02/01/2025 10:30 AM CDT Health Maintenance Due Date Last Done Comments Annual Physical 1983 Hepatitis C 1998 DTaP, Tdap and Td Vaccines ( 1 - Tdap) 1999 Hepatitis B Vaccines (1 of 3 - 19+ 3-dose series) 1999 HPV Vaccines (1 - 3-dose SCD M series) 2007 Pneumococcal Vaccine: Pediatrics (0 to 5 Years) and At-Risk Patients (6 to 49 Years) (2 of 2 - PCV) 12/04/2018 12/04/2017 Mammogram Screening 2020 COVID-19 Vaccine (3 - 2023-2 5 season) 2024 09/01/2020, 08/10/2020 Meningococcal B Vaccine Aged Out No l onger eligible based on patient's age to complete this topic Meningococcal Vaccine Aged Out No kimberley edouard eligible based on patient's age to complete this topic RSV Immunizations Under 20 Months Aged Out No longer eligible b ased on patient's age to complete this topic Goals Goal Patient Goal Type Associated Problems Recent Progress Patient-Stated? Author Autogenera christine Goal Care Plan Autogenerated Problem No Mariely Mckinney [facility] Procedures Procedure Name Priority Date/Time Associated Diagnosis Comments NM GASTRIC EMPTYING STUDY Routine 12/29/2024 10:24 AM CDT GERD (gastroesophageal reflux disease) Nausea & vomiting XR ESOPHAGRAM/BARIUM SWALLOW Routine 12/15/2024 8:19 AM CDT GERD (gastroesophageal reflux disease) Nausea Vomiting UPPER GI ENDOSCOPY,BIOPSY 11/23/2024 8:12 AM CDT Diverticulitis, acid reflux - Gerd COLONOSCOPY 11/23/2024 8:12 AM CDT Diverticulitis, acid reflux - Gerd POCT GLUCOSE - DOCKED DEVICE Routine 11/23/2024 7:57 AM CDT EGD Routine 11/23/2024 7:44 AM CDT COLONOSCOPY Routine 11/23/2024 7:44 AM CDT PROCEDURE GENERIC 11/23/2024 6:5 9 AM CDT PATHOLOGY Routine 11/23/2024 12:00 AM CDT from Last 3 Months Results * NM GASTRIC EMPTYING STUDY (12/29/2024 10:24 AM CDT) Anatomical Region Laterality Modality Abdomen Nuclear Medicine 12/29/2024 12:5 0 PM CDT Impressions 12/29/2024 12:53 PM CDT IMPRESSION: Normal gastric emptying study. Referred By: ELIDA MÉNDEZ Interpreted By: Dagoberto Bateman MD, 12/29/2024 12:50 PM Narrative 12/29/2024 12:53 PM CDT [address] [address] Gastric Emptying Scintigraphy Exam date: 12/29/2024. Indications: [...] Procedure Note Dagoberto Bateman MD - 12/29/2024 [facility] [address] [place], [place] [address] Gastric Emptying Scintigraphy Exam date: 12/29/2024. Indications: [...] By: Dagoberto Bateman MD, 12/29/2024 12:50 PM Elida Méndez MD NUC MED Final Resul t * XR ESOPHAGRAM/BARIUM SWALLOW (12/15/2024 8:19 AM CDT) Anatomical Region Laterality Modality Chest, Abdomen Fluoroscopy, Rad iographic Imaging 12/15/2024 4:32 PM CDT Impressions 12/15/2024 4:51 PM CDT IMPRESSION: 1. No apparent esophageal abnormality. 2. No appreciable hiatal hernia although reported 4 cm hiatal hernia on EGD. 3. Episode of vomiting while drinking thin barium in a horizontal MCKEON position. This could have been partially resulting from gastric air distention. Ordered By: ELIDA MÉNDEZ Interpreted By: Todd Odom, 12/15/2024 4:32 PM Narrative 12/15/2024 4:51 PM CDT [address] [address] IMAGING STUDIES: XR ESOPHAGRAM/BARIUM SWALLOW DATE: 12/15/2024 7:57 AM HISTORY: GERD 44-year-old female. History of epigastric and left upper quadrant abdominal pain. Gastroesophageal reflux disease. Nausea and vomiting. EGD and colonoscopy on 11/23/2024. Findings on EGD included a 4 cm hiatal hernia and grade 4 Hill flap valve. Additionally, 1 cm gastric antral mass noted with biopsies acquired. COMPARISON: No pertinent comparison exam at this institution. TECHNIQUE: With the patient standing, she swallowed a barium tablet followed by water. Subsequent ingestion of effervescent crystals followed by drinking of thick barium while in the LPO position, lateral position, and AP position. Intermittent fluoroscopy and pest control service representative static and cine images obtained. Fluoroscopy table was then tilted to a horizontal position and pest control service representative image acquired with the patient supine. Patient then placed in an MCKEON position (horizontal fluoroscopy table). Patient ingested thin barium while intermittent fluoroscopy and pest control service representative static and cine images obtained of the esophagus. Fluoroscopy time: 1 minute 12 seconds. Recorded radiation exposure: Total ED 20 4. mGy, total DAP 308 dGycm2. DISCUSSION: Normal swallowing mechanism (no laryngeal penetration or aspiration). Barium tablet quickly passed into the stomach. No Zenker's diverticulum. Postoperative changes of the cervical spine at C3-C6 levels. Small anterior osteophytes at C4-5 and C5-C6 levels which do not result in luminal narrowing of the cervical esophagus. Esophagus is normally distensible. Normal esophageal motility. No apparent esophageal ulcer or mucosal erosion. No appreciable hiatal hernia in the upright or horizontal position. After four swallows of the thin barium in the MCKEON position, the patient vomited. After she recovered, no residual contrast within the esophagus and decreased air distention of the stomach. On limited imaging, normal passage of fluid from the stomach into the duodenum. Procedure Note Todd Odom MD - 12/15/[address] [address] IMAGING STUDIES: XR ESOPHAGRAM/BARIUM SWALLOWDATE: 57:57 AM HISTORY: GERD 44-year-old female. History of epigastric and left upperquadrant abdominal pain. Gastroesophageal reflux disease. Nausea andvomiting. EGD and colonoscopy on 11/23/2024. Findings on EGD included a 4 cmhiatal hernia and grade 4 Hill flap valve. Additionally, 1 cm gastricantral mass noted with biopsies acquired. COMPARISON: No pertinent comparison exam at this institution. TECHNIQUE: With the patient standing, she swallowed a barium tablet followed bywater. Subsequent ingestion of effervescent crystals followed by drinkingof thick barium while in the LPO position, lateral position, and APposition. Intermittent fluoroscopy and pest control service representative static and cineimages obtained. Fluoroscopy table was then tilted to a horizontalposition and pest control service representative image acquired with the patient supine. Patient then placed in an MCKEON position (horizontal fluoroscopy table).Patient ingested thin barium while intermittent fluoroscopy andrepresentative static and cine images obtained of the esophagus. Fluoroscopy time: 1 minute 12 seconds. Recorded radiation exposure: TotalED 20 4. mGy, total DAP 308 dGycm2. DISCUSSION: Normal swallowing mechanism (no laryngeal penetration or aspiration).Barium tablet quickly passed into the stomach. No Zenker's diverticulum.Postoperative changes of the cervical spine at C3-C6 levels. Smallanterior osteophytes at C4-5 and C5-C6 levels which do not result inluminal narrowing of the cervical esophagus. Esophagus is normally distensible. Normal esophageal motility. No apparentesophageal ulcer or mucosal erosion. No appreciable hiatal hernia in the upright or horizontal position. Afterfour swallows of the thin barium in the MCKEON position, the patient vomited.After she recovered, no residual contrast within the esophagus anddecreased air distention of the stomach. On limited imaging, normalpassage of fluid from the stomach into the duodenum. IMPRESSION: 1. No apparent esophageal abnormality. 2. No appreciable hiatal hernia although reported 4 cm hiatal hernia onEGD. 3. Episode of vomiting while drinking thin barium in a horizontal RAOposition. This could have been partially resulting from gastric airdistention. Ordered By: ELIDA MÉNDEZ Interpreted By: Todd Odom, 12/15/2024 4:32 PM Elida Méndez MD FLUOROSCOPY Final Resul t * (ABNORMAL) POCT glucose (11/23/2024 7:57 AM CDT) GLUCOSE POC 157(H) 70 - 99 mg/dL 11/23/2024 7:59 AM CDT [facility] 11/23/2024 7:57 AM CDT Elida Méndez MD POCT ORDERABLES - DEVICE Fi nal Result [facility] [address] [place] [address], * PROCEDURE GENERIC (11/23/2024 6:59 AM CDT) Elida Méndez MD [facility]COM[facility] Edited Re sult - Final * Pathology (11/23/2024 12:00 AM CDT) PATHOLOGY [facility] Department of Laboratory Medicine [address] [place] [address] , extension [phone] Pathology Report Surgical Pathology Report Name: CAMI GOINS Specimen #: [id number] Age: 12 1980 (Age: 44) Location: [facility] Sex: F Procedure Date: 11/23/2024 Hospital #: [id number] Date Received: 11/23/2024 Date Reported: 11/25/2024 Provider: ELIDA MÉNDEZ MD Source: Gastric biopsies Clinical History: Diverticulitis, acid reflux, and GERD. FINAL DIAGNOSIS: Stomach, endoscopic biopsy: - Moderate active chronic gastritis with polypoid foveolar hyperplasia. - No malignancy identified. - Immunohistochemical stain is negative for Helicobacter pylori organisms. Gross Description: Received in formalin, labeled with a patient label and as gastric mass biopsies are 3 pieces of pink-sutton tissue ranging from 0.1 to 0.4 cm. The specimen is entirely submitted in cassette 1. Gross examination (when applicable), interpretation, and sign out were performed at [facility], [address] [place] [address]. All immunohistochemical and histochemical tests were developed by and performed at [facility], [address] [place] [address]. All tests reported here have not been cleared or approved by the U.S. Food and Drug Administration (FDA). This laboratory is regulated under CLIA as qualified to perform high-complexity testing. These tests are used for clinical purposes. They should not be regarded as investigational or for research. Positive and negative controls show appropriate reactivity. Electronically Signed Out JORGE LÓPEZ MD [facility] TISSUE GASTRIC BIOPSY SPECIMEN / Unknown 11/23/2024 8:26 AM CDT us Elida Méndez MD PATHOLOGY/CYTOLOGY ORDERABL ES Final Result [facility] [address] [place] [address], [id number] from Last 3 Months Additional Health Concerns Active Problems Noted Date Diagnosed Date Autogenerated Problem 12/21/2024 Insurance BRADEN Care Teams Character Actress Relationship Specialty Start Date End Date Leonie Greer MD [address] [place] [phone] PCP - General FAMILY PRACTICE 11/23/24
--- NOTE | 2024-12-31 06:12 | PC.NURSE ---
Rn attempted to give pt meds. pt states those will make her throw up and that she refuses to take it. Pt states she will just take her omeprazole when she gets it from the pharmacy.
[2024-12-31 06:14] VITALS: BP 124/77; PULSE 69; RESP 18; O2SAT 99
== END 2024-12-31 06:15 | disposition home or self-care (01) ==
PROVIDERS: Emergency Provider Student in an Organized Health Care Education/Training Program
DX: R07.89 Other chest pain (principal); E11.65 Type 2 diabetes mellitus with hyperglycemia; K44.9 Diaphragmatic hernia without obstruction or gangrene; I10 Essential (primary) hypertension; E78.5 Hyperlipidemia, unspecified; F17.210 Nicotine dependence, cigarettes, uncomplicated; Z86.73 Personal history of transient ischemic attack (TIA), and cerebral infarction without residual deficits; Z79.899 Other long term (current) drug therapy; Z79.85 Long-term (current) use of injectable non-insulin antidiabetic drugs; I45.10 Unspecified right bundle-branch block
CPT/HCPCS: 36415; 71046; 80053; 83690; 84484; 85025; 85610; 85730; 93005; 99284; A9270